=== PATIENT | female | born 1980 | race Caucasian/White ===

== ENCOUNTER 2018-12-05 18:26 | Emergency (ER) | payer MEDICARE, MEDICAID ==
[~2018-12-05] VITALS: Ht 177.8 cm; Wt 90.7 kg
--- NOTE | ~2018-12-05 | EKG ---
[place] [address] ELECTROCARDIOGRAM REPORT Name: KASSY CHAN Room: [facility]#: [id number] Admission: 12/05/18 Attend Phys: Discharge: 12/05/18 Date of : 76 Report #: [id number] THIS REPORT FOR: //name// [facility] ED Test Date: 2018-12-05 Test Time: 19:11:58 Pat Name: KASSY CHAN Department: Room: Gender: F Web Production Manager: Opal GALO : 1980 Requested By: Nayely Dueñas Order Number: [id number] MD: Measurements Intervals [place] Rate: 58 P: 34 RI: 163 QRS: 49 QRSD: 108 T: 16 QT: 466 QTc: 458 Interpretive Statements Sinus rhythm Compared to ECG 10/02/2015 12:32:28 No significant changes [email or web address] By: 10 10 Epiphany Epiphany, /EPI
[~2018-12-05 18:26] MED LIST: ANTIPYRINE-BENZ14 ML OT; BACTRIM; CARISOPRODOL 3350 MG PO; CIPRO500 MG PO; CORTISPORIN OTI10 M2 OT; CORTISPORIN OTI10 ML OTIC; DEPAKOTE ER500 MG PO; DOXYCYCLINE 10100 MG PO; ELIQUIS5 MG PO; ERY-TAB250 MG PO; FIORICET 50-301 EACH PO; FLEXERIL PO; FLOMAX0.4 MG PO; HYDROCHLOROTHIA25 M1; HYDROCODON-ACE1 EAC7 PO; HYDROCODON-ACE1 EACH PO; HYDROCODONE-AP1 EAC6 PO; IBUPROFEN 800800 M1 PO; IRON325 PO; KEFLEX500 MG PO; KEPPRA 500 MG500 M1 PO; LEXAPRO 10 MG T10 M1 PO; LIPITOR40 MG; LISINOPRIL; LISINOPRIL10 MG; LISINOPRIL20 MG PO; LOPRESSOR50 PO; LORTAB 10-3251 EACH PO; MEDROLDOSEPACK PO; METOPROLOL SUCC50 MG; METOPROLOL SUCC50 MG PO; NOHOMEMEDICATIONS; NORCO 5-325 TA1 EACH PO; NORFLEX100 MG PO; NORVASC 5 MG TAB5 MG PO; NORVASC5 MG PO; OXYCODONE HCL5 M1 PO; OXYCONTIN20 M1 PO; OXYCONTIN80 MG PO; PENICILLIN V P500 MG PO; PERCOCET 10-321 EACH PO; PERCOCET 5-3251 EACH PO; PETADOLEX50 MG PO; PHENAZOPYRIDIN200 M2 PO; PREDNISONE 20 M20 MG PO; TOPROL XL25 MG; TORADOL 10 MG T10 MG PO; ULTRAM 50MG TAB50 MG PO; VICOPROFEN 2001 EACH PO; VITAMIN B-2100 MG PO; XANAX 0.5 MG0.5 MG PO; XANAX 1 MG TABLE1 MG PO; ZESTRIL20 MG; ZOFRAN ODT4 MG PO; ZPAK PO
[2018-12-05] MEDS ORDERED: ZESTRIL20 MG PO (18:41)
[2018-12-05] MEDS ORDERED: KEPPRA 500 MG500 M1 PO ×2 (18:41→18:42)
[2018-12-05 19:13] LABS: ABSOLUTE BASOPHILS 0.1 thou/uL (0.0-0.2); ABSOLUTE LYMPHOCYTES 1.7 thou/uL (0.8-5.3); ABSOLUTE MONOCYTES 0.7 thou/uL (0.0-1.2); ABSOLUTE NEUTROPHILS 6.9 thou/uL (1.6-8.1); BASOPHILS 0.6 %; EOSINOPHILS 0.3 %; HEMATOCRIT 35.9 % (37.0-47.0); HEMOGLOBIN 11.7 gm/dL (12.0-15.0); LYMPHOCYTES 18.5 %; MCH 30.1 pg (26.0-34.0); MCHC 32.6 g/dL (28.0-37.0); MCV 92.2 fL (80.0-100.0); MONOCYTES 7.9 %; MPV 8.3 fl. (7.2-11.1); NUCLEATED RBCS 0 /100WBC; PLATELET COUNT* 381 thou/uL (150-400); POLYS 72.7 %; RBC 3.89 mil/uL (4.20-5.00); RDW-CV 14.9 % (10.5-14.5); WBC 9.4 thou/uL (4.0-11.0)
[2018-12-05 19:20] LABS: ANION GAP 10 mmol/L (7-16); BUN 5 mg/dL (7-18); CALCIUM 9.1 mg/dL (8.5-10.1); CHLORIDE 108 mmol/L (98-107); CO2 26 mmol/L (21-32); CREATININE 0.6 mg/dL (0.6-1.3); GLUCOSE 103 mg/dL (70-99); POTASSIUM 3.3 mmol/L (3.5-5.1); SODIUM 144 mmol/L (136-145)
[2018-12-05 19:30] LABS: ALBUMIN 3.4 g/dL (3.4-5.0); ALKALINE PHOSPHATASE 68 U/L (46-116); LIPASE 118 U/L (73-393); NT-PRO BRAIN NAT PEPTIDE 781 pg/mL (<300); SGOT 50 U/L (15-37); SGPT 77 U/L (30-65); TOTAL BILIRUBIN 0.4 mg/dL (<0.1-1.0); TOTAL PROTEIN 7.2 g/dL (6.4-8.2); TROPONIN-I LEVEL <0.06 ng/mL (<0.06)
[2018-12-05 20:08] LABS: URINE BILIRUBIN NEGATIVE (Negative); URINE BLOOD 3+ (Negative); URINE CLARITY TURBID; URINE COLOR YELLOW; URINE GLUCOSE-RANDOM NEGATIVE (Negative); URINE KETONES TRACE (Negative); URINE NITRITE-REFLEX NEGATIVE (Negative); URINE PROTEIN NEGATIVE (Negative); URINE UROBILINOGEN 0.2 E.U./dl (0.2-1.0)
[2018-12-05 20:09] LABS: URINE LEUKOCYTES-REFLEX 2+ (Negative)
[2018-12-05 20:29] LABS: AMP/METHAMP Negative (Negative); BARBITURATES Negative (Negative); BENZODIAZEPINES Negative (Negative); COCAINE Negative (Negative); METHADONE Negative (Negative); OPIATES Negative (Negative); PCP Negative (Negative); THC Negative (Negative)
[2018-12-05 20:30] LABS: BACTERIA-REFLEX >30 Many /HPF (None Seen); MUCUS 0-3 Light strn/LPF (None Seen); SQUAMOUS >10 Many /LPF (0-3)
[2018-12-05 20:31] LABS: CASTS None Seen /LPF (None Seen); URINE RBC 3-10 Few /HPF (0-2)
[2018-12-05 20:32] LABS: CRYSTALS None Seen /LPF (None Seen)
[2018-12-05 20:33] LABS: URINE WBC-REFLEX 6-15 Few /HPF (0-5)
[2018-12-05] MEDS ORDERED: HYDROXYZINE HCL25 M1 PO (22:09)
[2018-12-05] MEDS ORDERED: BACTRIM DS TAB1 EACH PO (22:09)
[2018-12-05 22:28] VITALS: BP 159/88
[2018-12-06] MEDS ORDERED: OXYCONTIN80 M1 PO (09:06)
== END 2018-12-05 22:29 | disposition home or self-care (01) ==
LOC: M.ERS 18:26
PROVIDERS: Physician Assistant
DX: N39.0 Urinary tract infection, site not specified (principal); F41.9 Anxiety disorder, unspecified; G43.909 Migraine, unspecified, not intractable, without status migrainosus; I10 Essential (primary) hypertension; F90.9 Attention-deficit hyperactivity disorder, unspecified type; F17.210 Nicotine dependence, cigarettes, uncomplicated; Z88.5 Allergy status to narcotic agent

== ENCOUNTER 2018-12-06 08:54 | Observation (INO) | payer MEDICARE, MEDICAID ==
[~2018-12-06] VITALS: Ht 177.8 cm; Wt 87.1 kg
--- NOTE | ~2018-12-06 | H ---
[address] [address] HISTORY AND PHYSICAL Name: KASSY CHAN Room: [address] Immanuel M.RAubrey#: [id number] Admission: 12/06/18 Attend Phys: Derrell Anand MD Discharge: 12/07/18 Date of : 76 Report #: [id number] THIS REPORT FOR: //name// For History and Physical please refer to the consultation note. By: [address] [place] [address] Records Staff [facility] /[facility]
[~2018-12-06 08:54] MED LIST changes: +BACTRIM DS TAB1 EACH PO; +HYDROXYZINE HCL25 M1 PO; +ZESTRIL20 MG PO
[2018-12-06 09:01] VITALS: BP 108/84
[2018-12-06] MEDS ORDERED: OXYCONTIN80 M1 PO (09:06)
[2018-12-06 09:59] LABS: ABSOLUTE BASOPHILS 0.1 thou/uL (0.0-0.2); ABSOLUTE EOSINOPHILS 0.1 thou/uL (0.0-0.7); ABSOLUTE LYMPHOCYTES 1.6 thou/uL (0.8-5.3); ABSOLUTE MONOCYTES 0.7 thou/uL (0.0-1.2); ABSOLUTE NEUTROPHILS 6.4 thou/uL (1.6-8.1); BASOPHILS 1.1 %; EOSINOPHILS 0.6 %; HEMATOCRIT 35.5 % (37.0-47.0); HEMOGLOBIN 11.9 gm/dL (12.0-15.0); LYMPHOCYTES 18.1 %; MCH 30.8 pg (26.0-34.0); MCHC 33.5 g/dL (28.0-37.0); MCV 92.2 fL (80.0-100.0); MONOCYTES 7.8 %; MPV 8.5 fl. (7.2-11.1); NUCLEATED RBCS 0 /100WBC; PLATELET COUNT* 365 thou/uL (150-400); POLYS 72.4 %; RBC 3.85 mil/uL (4.20-5.00); RDW-CV 14.8 % (10.5-14.5); WBC 8.9 thou/uL (4.0-11.0)
[2018-12-06 10:05] LABS: CALCIUM 8.9 mg/dL (8.5-10.1); CREATININE 0.6 mg/dL (0.6-1.3); POTASSIUM 3.1 mmol/L (3.5-5.1)
[2018-12-06 10:15] LABS: ALBUMIN 3.4 g/dL (3.4-5.0); TOTAL BILIRUBIN 0.4 mg/dL (<0.1-1.0); TOTAL PROTEIN 7.4 g/dL (6.4-8.2)
[2018-12-06 10:44] LABS: URINE BILIRUBIN NEGATIVE (Negative); URINE BLOOD NEGATIVE (Negative); URINE CLARITY CLEAR; URINE COLOR STRAW; URINE GLUCOSE-RANDOM NEGATIVE (Negative); URINE KETONES NEGATIVE (Negative); URINE LEUKOCYTES-REFLEX NEGATIVE (Negative); URINE NITRITE-REFLEX NEGATIVE (Negative); URINE PROTEIN NEGATIVE (Negative); URINE UROBILINOGEN 0.2 E.U./dl (0.2-1.0)
[2018-12-06 10:52] LABS: AMP/METHAMP Negative (Negative); BARBITURATES Negative (Negative); BENZODIAZEPINES Negative (Negative); COCAINE Negative (Negative); METHADONE Negative (Negative); OPIATES Negative (Negative); PCP Negative (Negative); THC Negative (Negative)
--- NOTE | 2018-12-06 12:44 | NUR ---
PT IS SLEEPING AT THIS TIME. SHE IS NOT JERKING AT THIS TIME. CT NOTIFIED OF STATUS AND WILL COME GET HER FOR CT
--- NOTE | 2018-12-06 13:20 | NUR ---
PT BACK FROM CT, ATTEMPTED TO GET HER CT X 3 TRIES BEFORE PUBLIC MESSAGE SERVICE SUPERVISOR DECIDED TO SEND WHAT SHE WAS ABLE TO GET. PT VERY NONCOMPLIANT AND WOULD NOT SIT STILL. SHE KEPT MOVING HER HEAD DURING CT AND FIDGETTING WITH HER ARMS AND LEGS.
[2018-12-06 14:00] VITALS: BP 142/79; BP 146/96
[2018-12-06 15:19] VITALS: BP 142/79
--- NOTE | 2018-12-06 17:13 | NUR ---
I ACCEPTED THE PATIENT AN ADMISSION FROM THE ED AROUND 1530. SHE IS ALERT AND ORIENTED X3 AND IS BEDREST. SHE IS UNABLE TO EXPRESS HER WORDS CLEARLY, BUT IS ABLE TO NOD APPROPRIATELY. PATIENT'S ADMISSION IS COMPLETED. NEUROLOGY CONSULT CALLED AND SAID THEY WILL SEE THE PATIENT ON 12/07/18. FLUIDS ARE INFUSING. PRN MEDS WERE GIVEN TO HELP THE PATIENT CALM DOWN. A KPAD IS BEING UTILIZED FOR CHRONIC BACK PAIN. CT WAS DONE IN THE ED PRIOR TO ADMISSION. PATIENT HAD HER LAST OXY ON 12/03/18 AND TAKES 3X80MG TID AND HAS FOR THE LAST 3 YEARS AND HAS 2 PHARMACIES FILLING HER SCRIPTS. DRUG SCREEN IS NEGATIVE. POTASSIUM IS BEING REPLACED. IN OCTOBER, SCRIPT WAS CHANGED FROM 4 TABS TO 3 TABS. WILL CONTINUE TO MONITOR. SEIZURE PADS ARE IN PLACE AND SHE IS ON THE MONITOR.
[2018-12-06 20:00] VITALS: BP 168/107
[2018-12-06 23:15] VITALS: BP 140/85
[2018-12-07] VITALS: BP 140/85
[2018-12-07 04:00] VITALS: BP 160/88
[2018-12-07 04:27] LABS: HEMATOCRIT 34.5 % (37.0-47.0); HEMOGLOBIN 11.4 gm/dL (12.0-15.0); MCH 30.4 pg (26.0-34.0); MCHC 33.1 g/dL (28.0-37.0); MCV 91.9 fL (80.0-100.0); MPV 8.3 fl. (7.2-11.1); RBC 3.75 mil/uL (4.20-5.00); RDW-CV 14.8 % (10.5-14.5); WBC 7.7 thou/uL (4.0-11.0)
--- NOTE | 2018-12-07 04:29 | NUR ---
Pt a/o x 4. RA/O2 2L NC PRN. C/o chronic back pain and anxiety, meds given per order. Adequate PO intake and output. Refused IVF infusion. Pt resting in bed comfortably, easily arousable. Standby assist to bathroom, steady on feet. Call light within reach. Bed alarm on. All other fall precautions maintained. Will continue to monitor.
[2018-12-07 04:43] LABS: CREATININE 0.6 mg/dL (0.6-1.3); MAGNESIUM 1.7 mg/dL (1.8-2.4); POTASSIUM 3.4 mmol/L (3.5-5.1)
[2018-12-07 08:00] VITALS: BP 175/104; BP 175/105
--- NOTE | 2018-12-07 11:00 | NUR ---
ASSUMED PT CARE AT 0700, PT LYING IN BED, CALL LIGHT IN REACH, CREDIT PRODUCTS OFFICER TRACING SINUS RHYTHM. PT INQUIRED ABOUT POSSIBLE DISCHARGE THIS DAY. C/O BACK PAIN 07/03, PRN OXY TO BE GIVEN DIRECTED. PT IS HYPERTENSIVE AT THIS TIME, STATING SHE USUALLY TAKES BP MEDICATION, DR LIMA TO BE NOTIFIED.
[2018-12-07 12:07] VITALS: BP 175/104
--- NOTE | 2018-12-07 13:01 | NUR ---
PT DISCHARGED AT 1244 WITH NURSING STAFF TO HER SPOUSE VIA CAR. MAYONNAISE MIXER AND IV DISCONTINUED, EDUCATION GIVEN ON MEDICATIONS, FOLLOW UP APPTS, AND ALL DISCHARGE INSTRUCTIONS, PT STATES UNDERSTANDING.
== END 2018-12-07 12:45 | disposition home or self-care (01) ==
LOC: M.ERS 08:54 → M.2W 12:43 → M.TBA-ER 12:43 → M.2W 12:43 → M.TBA-ER 15:30 → M.2W 12-07 12:45
PROVIDERS: Personal Emergency Response Attendant; ADMIT Internal Medicine
DX: G43.909 Migraine, unspecified, not intractable, without status migrainosus (principal); F11.20 Opioid dependence, uncomplicated; K76.89 Other specified diseases of liver; B19.20 Unspecified viral hepatitis C without hepatic coma; M47.9 Spondylosis, unspecified; D64.9 Anemia, unspecified; F41.9 Anxiety disorder, unspecified; F19.939 Other psychoactive substance use, unspecified with withdrawal, unspecified; R41.82 Altered mental status, unspecified; I10 Essential (primary) hypertension; F17.210 Nicotine dependence, cigarettes, uncomplicated; T50.905A Adverse effect of unspecified drugs, medicaments and biological substances, initial encounter; Z79.899 Other long term (current) drug therapy

== ENCOUNTER 2019-03-13 04:04 | Emergency (ER) | payer MEDICARE ==
[~2019-03-13] VITALS: Ht 180.3 cm; Wt 81.6 kg
[~2019-03-13 04:04] MED LIST changes: +OXYCONTIN80 M1 PO
[2019-03-13] MEDS ORDERED: TOPROL XL25 MG PO (04:18)
[2019-03-13 04:34] LABS: HEMATOCRIT 34.2 % (37.0-47.0); HEMOGLOBIN 11.3 gm/dL (12.0-15.0); MCH 28.3 pg (26.0-34.0); MCV 85.8 fL (80.0-100.0); MPV 8.6 fl. (7.2-11.1); NUCLEATED RBCS 0 /100WBC; PLATELET COUNT* 347 thou/uL (150-400); RBC 3.98 mil/uL (4.20-5.00); RDW-CV 13.9 % (10.5-14.5); WBC 17.2 thou/uL (4.0-11.0)
[2019-03-13 04:51] LABS: ALBUMIN 3.6 g/dL (3.4-5.0); CALCIUM 9.1 mg/dL (8.5-10.1); CREATININE 0.9 mg/dL (0.6-1.3); POTASSIUM 3.7 mmol/L (3.5-5.1); TOTAL BILIRUBIN 0.2 mg/dL (<0.1-1.0); TOTAL PROTEIN 8.1 g/dL (6.4-8.2)
[2019-03-13 05:08] LABS: URINE BILIRUBIN NEGATIVE (Negative); URINE BLOOD NEGATIVE (Negative); URINE CLARITY CLEAR; URINE COLOR YELLOW; URINE GLUCOSE-RANDOM NEGATIVE (Negative); URINE KETONES NEGATIVE (Negative); URINE LEUKOCYTES-REFLEX NEGATIVE (Negative); URINE NITRITE-REFLEX NEGATIVE (Negative); URINE PROTEIN TRACE (Negative); URINE SPECIFIC GRAVITY 1.015 (1.005-1.030); URINE UROBILINOGEN 0.2 E.U./dl (0.2-1.0)
[2019-03-13 05:17] LABS: AMP/METHAMP Negative (Negative); BARBITURATES Negative (Negative); BENZODIAZEPINES Negative (Negative); COCAINE Negative (Negative); METHADONE Negative (Negative); OPIATES POSITIVE (Negative); PCP Negative (Negative); THC Negative (Negative)
[2019-03-13 06:11] LABS: ABSOLUTE NEUTROPHILS 15.1 thou/uL (1.6-8.1); ANISOCYTOSIS 1+; PLATELET ESTIMATE ADEQUATE; POIKILOCYTOSIS 1+
[2019-03-13] MEDS ORDERED: PERCOCET 5-3251 EACH PO (07:32)
[2019-03-13 07:43] VITALS: BP 155/87
== END 2019-03-13 07:44 | disposition home or self-care (01) ==
LOC: M.ERS 04:04
PROVIDERS: Emergency Medicine Emergency Medical Services
DX: M54.5 Low back pain (principal); R10.31 Right lower quadrant pain; F17.210 Nicotine dependence, cigarettes, uncomplicated; G43.909 Migraine, unspecified, not intractable, without status migrainosus; I10 Essential (primary) hypertension; F41.9 Anxiety disorder, unspecified; F90.9 Attention-deficit hyperactivity disorder, unspecified type; M41.9 Scoliosis, unspecified

== ENCOUNTER → 2020-03-17 | Day surgery (SDC) | payer MEDICARE, MEDICAID ==
[~2020-03-17] MED LIST changes: +AMLODIPINE BESY10 MG PO; +MOBIC15 MG PO; +NEURONTIN300 MG PO; +ZANAFLEX2 MG PO
--- NOTE | ~2020-03-17 | OP ---
[facility] [address] [place] [address] OPERATIVE REPORT Name: KASSY CHAN Amari Room: [facility]#: [id number] Admission: 03/17/20 Attend Phys: Ruddy Dickson Discharge: Date of : 76 Report #: [id number] THIS REPORT FOR: //name// cc: Laura Lamar NP, Elizabeth NP THIS REPORT FOR: //name// CC: Laura Dickson DATE OF SERVICE: 03/17/2020 PREOPERATIVE DIAGNOSIS: Right shoulder abscess. POSTOPERATIVE DIAGNOSIS: Right shoulder abscess. OPERATION: Incision and drainage of right shoulder abscess. SURGEON: Ruddy Dickson MD ANESTHESIA: General. ESTIMATED BLOOD LOSS: Minimal. SPECIMEN: None. DESCRIPTION OF PROCEDURE: After informed consent was obtained, the patient was brought to the operating room and placed supine. SCDs were placed and working, preoperative antibiotics were administered, general anesthesia was induced. The patient was placed in the left lateral decubitus position. The area was then prepped and draped in the usual sterile fashion. A 3 cm incision was made over the area of fluctuance. Cautery dissection was made down through the subcutaneous tissue. A copious amount of pus was expressed. The area was then irrigated with normal saline and packed with sterile gauze. Sterile dressings were applied. COMPLICATIONS: None. DISPOSITION: The patient was taken to recovery in satisfactory condition. By: [id number] [id number] Dickson MD /rancho
[2020-03-17 12:47] LABS: HEMATOCRIT 30.9 % (37.0-47.0); HEMOGLOBIN 10.1 gm/dL (12.0-15.0)
== END | disposition home or self-care (01) ==
LOC: M.SUR 06:37
PROVIDERS: Surgery
DX: L02.413 Cutaneous abscess of right upper limb (principal); I10 Essential (primary) hypertension; D64.9 Anemia, unspecified; F41.9 Anxiety disorder, unspecified; G43.909 Migraine, unspecified, not intractable, without status migrainosus; Z87.440 Personal history of urinary (tract) infections; Z79.899 Other long term (current) drug therapy; Z87.891 Personal history of nicotine dependence; Z98.890 Other specified postprocedural states